=== PATIENT | male | born 1965 | race Caucasian/White ===

== ENCOUNTER 2019-01-10 09:24 | Day surgery (SDC) | payer OTHER ==
[~2019-01-10] VITALS: Ht 188 cm; Wt 72.3 kg
[~2019-01-10 09:24] MED LIST: LIDOCAINE 2% (SDV) 5 ML INJ ONE; PROPOFOL 200 MG INJ ONE
[2019-01-10 10:02] VITALS: Ht 188 cm; Wt 72.3 kg
[2019-01-10] MEDS ORDERED: IBUP-1561 PO (10:06)
[2019-01-10] MEDS ORDERED: PROPOFOL 20 ML ONE (10:17)
--- NOTE | 2019-01-10 10:26 | PREAC ---
Date/Time of Note Date/Time of Note DATE: 01/10/19 TIME: 10:25 Anesthesia Eval and Record Evaluation Time Pre-Procedure Interview DATE: 01/10/19 TIME: 10:25 Age 53 Sex male NPO: 8 hrs Preoperative diagnosis screening Planned procedure colonoscopy Past Medical History Past Medical History: Includes GI: GERD, Other (parasites?) Surgery & Anesthesia Issues No known issue Meds Anticoagulation: No Beta Chloe within 24 hr: No Reason Beta Chloe not given: Pt. not on B-Chloe Reported Medications Ibuprofen* (Motrin*) 400 Mg Tab, 400 MG PO Q8H PRN for PAIN, TAB 01/10/19 Meds reviewed: Yes Allergies Coded Allergies: No Known Drug Allergies (Verified Allergy, Unknown, 01/10/19) Allergies Reviewed: Yes Labs/Studies Labs Reviewed: Reviewed by anesthesiologist test: N/A Studies: ECG Pre-procedure Exam Airway: Adequate mouth opening, Adequate thyromental dist Mallampati: Mallampati III Teeth: Normal Lung: Normal Heart: Normal ASA Physical Status ASA physical status: 2 Emergency: None Planned Anesthetic General/MAC: MAC Planned Pain Management Parenteral pain med Pre-operative Attestations Prior to commencing anesthesia and surgery, the patient was re-evaluated, there was verification of: *The patient's identity *The results of appropriate recent lab work and preoperative vital signs *The above evaluation not changing prior to induction *Anesthetic plan, risk benefits, alternative and complications discussed with patient/family; questions answered; patient/family understands, accepts and wishes to proceed. MALA ZAMORA MD Jan 10, 2019 10:26
[2019-01-10 10:32] VITALS: BP 112/73; PULSE 80; RESP 20
--- NOTE | 2019-01-11 15:57 | PAC ---
Date/Time of Note Date/Time of Note DATE: 01/11/19 TIME: 15:56 Post-Anesthesia Notes Post-Anesthesia Note Last documented vital signs Vital Signs Date Temp Pulse Resp B/P (MAP) Pulse Ox O2 O2 Flow FiO2 Time Delivery Rate 01/10/19 97.8 80 20 112/73 100 Room Air 10:32 (86) Activity: WNL Respiratory function: WNL Cardiovascular function: WNL Mental status: Baseline Pain reasonably controlled: Yes Hydration appropriate: Yes Nausea/Vomiting absent: Yes MALA ZAMORA MD Jan 11, 2019 15:57
== END 2019-01-10 15:19 | disposition home or self-care (01) ==
LOC: GIL 09:24
PROVIDERS: ATTEND Internal Medicine Gastroenterology
DX: Z12.11 Encounter for screening for malignant neoplasm of colon (principal); D12.0 Benign neoplasm of cecum; K64.8 Other hemorrhoids
CPT/HCPCS: 45380; 88305; Z7610